=== PATIENT | male | born 1960 | race Caucasian/White ===

== ENCOUNTER → 2018-01-20 | Outpatient (CLI) | payer BC, MEDICARE ==
--- NOTE | 2018-01-20 10:35 | P.STRESS ---
- Stress Test Note Stress Test Results/Findings: Exam Performed: stress test Exam Date: 01/20/18 Reason for Exam: CHEST PAIN Height: 5 ft 9 in Weight: 92.986 kg Protocol: GORDON Stage: V Duration of Exercise: 12:34 Resting Heart Rate: 69 Resting Blood Pressure: 158/102 Maximum Achieved Heart Rate: 147 Maximum Achieved Blood Pressure: 212/89 85% PMHR: 140 100% PMHR: 165 METS: 12.9 Technologist Comment: Stress Test Results/Findings: This is a 57-year-old gentleman being evaluated for symptoms of chest pain and shortness of breath. Patient has history of hypercholesteremia and family history of ischemic heart disease. Stress data: Baseline EKG showed sinus rhythm with normal [place] interval and QRS duration. Blood pressure at rest is 158 102 with a pulse rate of 69. Patient walked on the Gordon protocol for 12 minutes and 34 seconds achieving a maximal heart rate of 147 with a blood pressure of 212/89. EKGs taken during and after exercise did not reveal any significant changes from the baseline. Patient did not experience any chest pain. Had chronic back pain. Final impression: #1. Negative regular stress test #2. Excellent exercise capacity #3. Patient did not express any chest pain #4. No arrhythmias are noted.
--- NOTE | 2018-01-21 10:55 | EST ---
Stress Test Results/Findings: Exam Performed: stress test Exam Date: 01/20/18 Reason for Exam: CHEST PAIN Height: 5 ft 9 in Weight: 92.986 kg Protocol: GORDON Stage: V Duration of Exercise: 12:34 Resting Heart Rate: 69 Resting Blood Pressure: 158/102 Maximum Achieved Heart Rate: 147 Maximum Achieved Blood Pressure: 212/89 85% PMHR: 140 100% PMHR: 165 METS: 12.9 Technologist Comment: Stress Test Results/Findings: This is a 57-year-old gentleman being evaluated for symptoms of chest pain and shortness of breath. Patient has history of hypercholesteremia and family history of ischemic heart disease. Stress data: Baseline EKG showed sinus rhythm with normal HI interval and QRS duration. Blood pressure at rest is 158 102 with a pulse rate of 69. Patient walked on the Gordon protocol for 12 minutes and 34 seconds achieving a maximal heart rate of 147 with a blood pressure of 212/89. EKGs taken during and after exercise did not reveal any significant changes from the baseline. Patient did not experience any chest pain. Had chronic back pain. Final impression: #1. Negative regular stress test #2. Excellent exercise capacity #3. Patient did not express any chest pain #4. No arrhythmias are noted. MTDD
== END ==
LOC: RADNMMAIN 08:43
PROVIDERS: ATTEND Family Medicine
DX: R07.89 Other chest pain (principal)
CPT/HCPCS: 93017

== ENCOUNTER → 2020-01-26 | Outpatient (CLI) | payer BC, MEDICARE ==
--- NOTE | 2020-01-26 22:00 | XR ---
EXAMINATION TYPE: XR knee complete RT DATE OF EXAM: 01/26/2020 COMPARISON: HISTORY: Pain TECHNIQUE: Three-view right knee FINDINGS: No significant joint effusion is evident. Patellofemoral joint space appears preserved. Sma ll posterior patellar spurs may be present. Medial lateral compartment joint spaces are preserved. No acute fractures or dislocations are evident. Follow-up exams can be performed 7-10 days from acute trauma for continued pain. MRI could be perform ed if evaluation of soft tissues is required. IMPRESSION: 1. Normal three-view right knee.
== END | disposition home or self-care (01) ==
LOC: RADXRYALE 16:17
PROVIDERS: ATTEND Physician Assistant Medical
DX: M25.561 Pain in right knee (principal)

== ENCOUNTER → 2020-05-03 | Outpatient (CLI) | payer BC, MEDICARE ==
--- NOTE | 2020-05-03 12:41 | CT ---
EXAMINATION TYPE: CT sinus wo con DATE OF EXAM: 05/03/2020 COMPARISON: None HISTORY: Chronic sinusitis CT DLP: 583 mGycm CONTRAST: 0 mL of Isovue 300 The paranasal sinuses are examined in the axial plane at 2 mm thick sections. Reconstructed images i n the coronal plane were obtained. Maxillary spine is intact. The maxillary sinuses are clear. The ethmoid air cells are clear. The sphenoid sinuses are clear. The frontal sinuses are clear. The septum is evaluated. There is septal deviation to the left. The ostiomeatal units are patent. IMPRESSIONS: 1. Normal CT sinus study. 2. Left septal deviation.
== END | disposition home or self-care (01) ==
LOC: RADCTMAIN 09:15
PROVIDERS: ATTEND Otolaryngology
DX: J34.2 Deviated nasal septum (principal); J32.9 Chronic sinusitis, unspecified; Z91.013 Allergy to seafood
CPT/HCPCS: 70486

== ENCOUNTER 2022-03-21 21:06 | Emergency (ER) | payer BC, MEDICARE ==
[2022-03-21 21:21] VITALS: BP 183/100; PULSE 81; RESP 20; TEMP 98.2
== END 2022-03-21 23:29 | disposition left against medical advice (07) ==
LOC: EC 21:06
DX: Z53.21 Procedure and treatment not carried out due to patient leaving prior to being seen by health care provider (principal)
CPT/HCPCS: 93005; 99499

== ENCOUNTER → 2023-03-12 | Outpatient (CLI) | payer MEDICARE ==
[2023-03-12 15:10] VITALS: BP 162/75; PULSE 73; TEMP 98.5; BMI 29.7
--- NOTE | 2023-03-12 15:19 | P.BASOAP ---
Subjective Progress Note Date: 03/12/23 Principal diagnosis: Morbid obesity Patient here today for a lap band adjustment. He underwent lap band placement in 2010. Initial weight 260. Today's weight 200. States he would like to lose a bit more. He does have restriction. He can tolerate bread and meat at times however. He is unsure how much fluid is in his band. Objective - Vital Signs Vital signs: Vital Signs Temp 98.5 F 03/12/23 15:06 Pulse 73 03/12/23 15:06 Resp BP 162/75 03/12/23 15:06 Pulse Ox FiO2 Intake & Output 03/11/23 03/12/23 03/12/23 18:59 06:59 18:59 Weight 91.172 kg - Exam Abdomen: Soft, nontender, nondistended Assessment/Plan (1) Morbid obesity Narrative/Plan: 62-year-old male with morbid obesity. Patient interested in lap band adjustment. Will add fluid. The patient's lap band port was palpated. The site was aseptically prepped. The Payton needle was advanced into the port. The patient's band was accessed. First I withdrew fluid. The patient had over 7 mL in the band. I only had a 6 mL syringe so he may have had more than that. I added 0.5 mL of fluid today. Pressure was held and a sterile dressing was applied. Plan: Date: 03/12/23 Initial Weight: Initial BMI: Current Weight: 91.172 kg Current BMI: 29.7 Type of Surgery: Total Volume in Band: Previous Volume: Volume Removed: Volume Added: Band Size:
== END ==
LOC: BARWHC3 14:43
PROVIDERS: ATTEND Surgery
DX: E66.01 Morbid (severe) obesity due to excess calories (principal); Z46.51 Encounter for fitting and adjustment of gastric lap band; Z91.013 Allergy to seafood
CPT/HCPCS: 99212

== ENCOUNTER 2023-04-01 07:32 | Emergency (ER) | payer MEDICARE ==
[2023-04-01 07:39] VITALS: RESP 18
--- NOTE | 2023-04-01 07:57 | ED ---
General Adult HPI - General Chief complaint: Urogenital Stated complaint: blood in urine Time Seen by Provider: 04/01/23 07:50 Source: patient, RN notes reviewed, old records reviewed Mode of arrival: ambulatory Limitations: no limitations - History of Present Illness Initial comments: This is a 62-year-old male who presents to the emergency department complaining that he woke up this morning was urinating blood. Patient states she's had no dysuria. Patient states he is not on any blood thinners. Patient denies any history of similar. Patient denies any abdominal pain or back pain. Patient denies any fever chills. - Related Data Home Medications Medication Instructions Recorded Confirmed Amphetamine [Dyanavel Xr] 20 mg PO BID 03/12/23 03/12/23 Gabapentin 600 mg PO BID 03/12/23 03/12/23 oxyCODONE HCL/ACETAMINOPHEN 1 tab PO BID 03/12/23 03/12/23 [oxyCODONE HCL/ACETAMINOPHEN 10-300] Allergies Allergy/AdvReac Type Severity Reaction Status Date / Time shellfish derived [Shellfish] AdvReac Anaphylaxis Verified 04/01/23 07:39 Review of Systems ROS Statement: Those systems with pertinent positive or pertinent negative responses have been documented in the HPI. ROS Other: All systems not noted in ROS Statement are negative. Past Medical History Past Medical History: GERD/Reflux, Hypertension Additional Past Medical History / Comment(s): chronic back pain History of Any Multi-Drug Resistant Organisms: None Reported Past Surgical History: Bariatric Surgery, Orthopedic Surgery Additional Past Surgical History / Comment(s): lap band Past Anesthesia/Blood Transfusion Reactions: No Reported Reaction Past Psychological History: No Psychological Hx Reported Smoking Status: Never smoker Past Alcohol Use History: None Reported Past Drug Use History: None Reported General Exam - General Exam Comments Initial Comments: GENERAL: Patient is well-developed and well-nourished. Patient is nontoxic and well- hydrated and is in no acute distress. ENT: Neck is soft and supple. No significant lymphadenopathy is noted. Oropharynx is clear. Moist mucous membranes. Neck has full range of motion without eliciting any pain. EYES: The sclera were anicteric and conjunctiva were pink and moist. Extraocular movements were intact and pupils were equal round and reactive to light. Eyelids were unremarkable. PULMONARY: Unlabored respirations. Good breath sounds bilaterally. No audible rales rhonchi or wheezing was noted. CARDIOVASCULAR: There is a regular rate and rhythm without any murmurs gallops or rubs. ABDOMEN: Soft and nontender with normal bowel sounds. SKIN: Skin is clear with no lesions or rashes and otherwise unremarkable. NEUROLOGIC: Patient is alert and oriented x3. Cranial nerves II through XII are grossly intact. Motor and sensory are also intact. Normal speech, volume and content. Symmetrical smile. MUSCULOSKELETAL: Normal extremities with adequate strength and full range of motion. No lower extremity swelling or edema. No calf tenderness. Negative CVA tenderness LYMPHATICS: No significant lymphadenopathy is noted PSYCHIATRIC: Normal psychiatric evaluation. Limitations: no limitations Course Vital Signs 04/01/23 07:36 Temperature 98 F Pulse Rate 92 Respiratory 18 Rate Blood Pressure 155/83 O2 Sat by Pulse 98 Oximetry Medical Decision Making - Medical Decision Making Was pt. sent in by a medical professional or institution (, PA, CHANGE DIRECTOR, urgent care, hospital, or half-way...) When possible be specific @ -No Did you speak to anyone other than the patient for history (EMS, parent, family, police, friend...)? What history was obtained from this source @ -No Did you review nursing and triage notes (agree or disagree)? Why? @ -I reviewed and agree with nursing and triage notes Were old charts reviewed (outside hosp., previous admission, EMS record, old EKG, old radiological studies, urgent care reports/EKG's, half-way records)? Report findings @ -No old charts were reviewed Differential Diagnosis (chest pain, altered mental status, abdominal pain women, abdominal pain men, vaginal bleeding, weakness, fever, dyspnea, syncope, headache, dizziness, GI bleed, back pain, seizure, CVA, palpatations, mental health, musculoskeletal)? @ -Differential Abdominal Pain Men: Appendicitis, cholecystitis, diverticulosis, bladder tumor, kidney tumor, is chemic bowel, pancreatitis, hepatitis, UTI, gastroenteritis, AAA, incarcerated hernia, bowel obstruction, constipation, inflammatory bowel, hepatitis, peptic ulcer disease, splenic infarction, perforated viscus, testicular torsion, this is not meant to be an all-inclusive list EKG interpreted by me (3pts min.). @ -As above X-rays interpreted by me (1pt min.). @ -None done CT interpreted by me (1pt min.). @ -None done U/S interpreted by me (1pt. min.). @ -Ultrasound showed a potential mass in the bladder What testing was considered but not performed or refused? (CT, X-rays, U/S, labs)? Why? @ -None What meds were considered but not given or refused? Why? @ -None Did you discuss the management of the patient with other professionals (professionals i.e. Dr., PA, CHANGE DIRECTOR, lab, RT, psych nurse, social media analyst, conveyor line battery charger, teacher, u.s. revenue officer, outsole caser)? Give summary @ -No Was smoking cessation discussed for >3mins.? @ -No Was critical care preformed (if so, how long)? @ -No Were there social determinants of health that impacted care today? How? (Homelessness, low income, unemployed, alcoholism, drug addiction, transportation, low edu. Level, literacy, decrease access to med. care, correction, rehab)? @ -No Was there de-escalation of care discussed even if they declined (Discuss DNR or withdrawal of care, Hospice)? DNR status @ -No What co-morbidities impacted this encounter? (DM, HTN, Smoking, COPD, CAD, Cancer, CVA, ARF, Chemo, Hep., AIDS, mental health diagnosis, sleep apnea, morbid obesity)? @ -None Was patient admitted / discharged? Hospital course, mention meds given and route, prescriptions, significant lab abnormalities, going to OR and other pertinent info. @ -Patient's ultrasound showed potential mass in the bladder. Patient follow- up with urology. Undiagnosed new problem with uncertain prognosis? @ -No Drug Therapy requiring intensive monitoring for toxicity (Heparin, Nitro, Insulin, Cardizem)? @ -No Were any procedures done? @ -No Diagnosis/symptom? @ -Hematuria Acute, or Chronic, or Acute on Chronic? @ -Acute Uncomplicated (without systemic symptoms) or Complicated (systemic symptoms)? @ -Complicated Side effects of treatment? @ -No Exacerbation, Progression, or Severe Exacerbation? @ -No Poses a threat to life or bodily function? How? (Chest pain, [place], [place], pneumonia, PE, COPD, DKA, ARF, appy, cholecystitis, CVA, Diverticulitis, Homicidal, Mukherjee icidal, threat to staff... and all critical care pts) @ -No Diagnosis/symptom? @ -Bladder mass Acute, or Chronic, or Acute on Chronic? @ -Acute Uncomplicated (without systemic symptoms) or Complicated (systemic symptoms)? @ -Complicated Side effects of treatment? @ -none Exacerbation, Progression, or Severe Exacerbation] @ -no Poses a threat to life or bodily function? @ -no - Lab Data Result diagrams: 04/01/23 07:56 04/01/23 07:56 Lab Results 04/01/23 04/01/23 04/01/23 Range/Units 07:56 07:56 07:56 WBC 4.3 (3.8-10.6) k/uL RBC 4.85 (4.30-5.90) m/uL Hgb 15.6 (13.0-17.5) gm/dL Hct 46.6 (39.0-53.0) % MCV 96.0 (80.0-100.0) fL MCH 32.1 (25.0-35.0) pg MCHC 33.4 (31.0-37.0) g/dL RDW 12.3 (11.5-15.5) % Plt Count 233 (150-450) k/uL MPV 6.8 Neutrophils % 58 % Lymphocytes % 31 % Monocytes % 7 % Eosinophils % 2 % Basophils % 1 % Neutrophils # 2.5 (1.3-7.7) k/uL Lymphocytes # 1.3 (1.0-4.8) k/uL Monocytes # 0.3 (0-1.0) k/uL Eosinophils # 0.1 (0-0.7) k/uL Basophils # 0.0 (0-0.2) k/uL Sodium 141 (137-145) mmol/L Potassium 3.5 (3.5-5.1) mmol/L Chloride 102 (98-107) mmol/L Carbon Dioxide 29 (22-30) mmol/L Anion Gap 10 mmol/L BUN 17 (9-20) mg/dL Creatinine 1.06 (0.66-1.25) mg/dL Est GFR (CKD-EPI)AfAm 88 (>60 ml/min/1.73 sqM) Est GFR (CKD-EPI)NonAf 77 (>60 ml/min/1.73 sqM) Glucose 93 (74-99) mg/dL Calcium 9.8 (8.4-10.2) mg/dL Total Bilirubin 1.0 (0.2-1.3) mg/dL AST 29 (17-59) U/L ALT 25 (4-49) U/L Alkaline Phosphatase 70 (38-126) U/L Total Protein 7.0 (6.3-8.2) g/dL Albumin 4.3 (3.5-5.0) g/dL Urine Color Dark Red Urine Appearance Turbid (Clear) Urine RBC >182 H (0-5) /hpf Urine WBC 11 H (0-5) /hpf Urine Mucus Many H (None) /hpf Disposition Clinical Impression: Bladder mass, Hematuria Disposition: HOME SELF-CARE Condition: Good Instructions (If sedation given, give patient instructions): Hematuria (ED) Is patient prescribed a controlled substance at d/c from ED?: No Referrals: Pratik Conti DO [Primary Care Provider] - 1-2 days Tyler Romero MD [STAFF PHYSICIAN] - 1-2 days Time of Disposition: 08:57
[2023-04-01 08:21] LABS: Basophils % (A) 1 %; Eosinophils # (A) 0.1 k/uL (0-0.7); Eosinophils % (A) 2 %; HCT 46.6 % (39.0-53.0); HGB 15.6 gm/dL (13.0-17.5); Lymphocytes # (A) 1.3 k/uL (1.0-4.8); Lymphocytes % (A) 31 %; MCH 32.1 pg (25.0-35.0); MCHC 33.4 g/dL (31.0-37.0); Mean Platelet Volume 6.8; Monocytes # (A) 0.3 k/uL (0-1.0); Monocytes % (A) 7 %; Neutrophils # (A) 2.5 k/uL (1.3-7.7); Neutrophils % (A) 58 %; Platelet Count 233 k/uL (150-450); RBC 4.85 m/uL (4.30-5.90); RDW 12.3 % (11.5-15.5); WBC 4.3 k/uL (3.8-10.6)
--- NOTE | 2023-04-01 08:32 | US ---
EXAMINATION TYPE: US renals and bladder DATE OF EXAM: 04/01/2023 COMPARISON: NONE CLINICAL INDICATION: Male, 62 years old with history of Hematuria; Pt states painless gross hematuria that started yesterday EXAM MEASUREMENTS: Right Kidney: 11.0 x 4.9 x 4.7 cm Left Kidney: 12.1 x 5.1 x 5.4 cm Right Kidney: Normal cortical thickness. No evidence of shadowing calculi or hydronephrosis. Simple c ystic lesion upper pole= 1.7 x 1.3 x 1.4 cm Left Kidney: Normal cortical thickness. No evidence of shadowing calculi or hydronephrosis. A few sim ple cystic lesions are suggested, the largest in the upper pole= 3.5 x 2.8 x 2.7 cm Bladder: Bladder not fully distended as the patient voided just prior to exam. There appears to be an irregular solid appearing lesion with minimal internal Doppler flow suggested along the left bladder wall extending into the lumen = 1.2 x 1.3 x 1.3 cm Bilateral Jets seen: No IMPRESSION: 1. Bilateral renal simple cysts. 2. No evidence of shadowing calculi or hydronephrosis. 3. Irregular 1.3 cm filling defect suggested within the bladder on the left, concerning for possible neoplasm.
[2023-04-01 08:33] LABS: Appearance,Urine Turbid (Clear); Color,Urine Dark Red; Mucus,Urine Many /hpf; RBC,Urine >182 /hpf (0-5); WBC,Urine 11 /hpf (0-5)
[2023-04-01 08:38] LABS: ALT 25 U/L (4-49); AST 29 U/L (17-59); African American GFR (CKD) 88 (>60 ml/min/1.73 sqM); Albumin 4.3 g/dL (3.5-5.0); Alkaline Phosphatase 70 U/L (38-126); Anion Gap 10 mmol/L; Blood Urea Nitrogen 17 mg/dL (9-20); Calcium 9.8 mg/dL (8.4-10.2); Carbon Dioxide 29 mmol/L (22-30); Chloride 102 mmol/L (98-107); Glucose 93 mg/dL (74-99); Non-African American GFR(CKD) 77 (>60 ml/min/1.73 sqM); Potassium 3.5 mmol/L (3.5-5.1); Sodium 141 mmol/L (137-145)
[2023-04-01 09:18] VITALS: BP 146/82; PULSE 86; TEMP 97.6
== END 2023-04-01 09:02 | disposition home or self-care (01) ==
LOC: EC 07:32
DX: R31.9 Hematuria, unspecified (principal); N32.89 Other specified disorders of bladder; I10 Essential (primary) hypertension; Z91.013 Allergy to seafood
CPT/HCPCS: 36415; 76770; 80053; 81001; 85025; 99284

== ENCOUNTER 2023-04-17 00:32 | Emergency (ER) | payer MEDICARE ==
--- NOTE | 2023-04-17 01:04 | ED ---
General Adult HPI - General Chief complaint: Urogenital Stated complaint: po complication Time Seen by Provider: 04/17/23 00:38 Source: patient, EMS, RN notes reviewed, old records reviewed Mode of arrival: EMS - History of Present Illness Initial comments: 62-year-old male with urinary retention after having bladder mass surgery today. Youssef catheter was left in place. The patient had changed his leg bag and after this point did not have any urine output. Upon arrival nursing staff was able to adjust tubing properly and the patient had normal urine flow. No other complaints. - Related Data Home Medications Medication Instructions Recorded Confirmed Amphetamine [Dyanavel Xr] 20 mg PO BID 03/12/23 03/12/23 Gabapentin 600 mg PO BID 03/12/23 03/12/23 oxyCODONE HCL/ACETAMINOPHEN 1 tab PO BID 03/12/23 03/12/23 [oxyCODONE HCL/ACETAMINOPHEN 10-300] Allergies Allergy/AdvReac Type Severity Reaction Status Date / Time shellfish derived [Shellfish] AdvReac Anaphylaxis Verified 04/17/23 00:45 Review of Systems ROS Statement: Those systems with pertinent positive or pertinent negative responses have been documented in the HPI. ROS Other: All systems not noted in ROS Statement are negative. Past Medical History Past Medical History: GERD/Reflux, Hypertension Additional Past Medical History / Comment(s): chronic back pain History of Any Multi-Drug Resistant Organisms: None Reported Past Surgical History: Bariatric Surgery, Bladder Surgery, Orthopedic Surgery Additional Past Surgical History / Comment(s): lap band, bladder surgery 04/16/2023 Past Anesthesia/Blood Transfusion Reactions: No Reported Reaction Past Psychological History: No Psychological Hx Reported Smoking Status: Never smoker Past Alcohol Use History: None Reported Past Drug Use History: None Reported General Exam General appearance: alert, in no apparent distress Head exam: Present: atraumatic, normocephalic Eye exam: Present: normal appearance, PERRL ENT exam: Present: normal exam Neck exam: Present: normal inspection. Absent: tenderness, meningismus Respiratory exam: Present: normal lung sounds bilaterally. Absent: respiratory distress, wheezes Cardiovascular Exam: Present: regular rate, normal rhythm GI/Abdominal exam: Present: soft Course Vital Signs 04/17/23 00:41 Temperature 97.6 F Pulse Rate 61 Respiratory 19 Rate Blood Pressure 137/81 O2 Sat by Pulse 95 Oximetry Medical Decision Making - Medical Decision Making Was pt. sent in by a medical professional or institution (KAY Johnson, SOFT WATER MECHANIC, urgent care, hospital, or usp...) When possible be specific @ -No Did you speak to anyone other than the patient for history (EMS, parent, family, police, friend...)? What history was obtained from this source @ -No Did you review nursing and triage notes (agree or disagree)? Why? @ -I reviewed and agree with nursing and triage notes Were old charts reviewed (outside hosp., previous admission, EMS record, old EKG, old radiological studies, urgent care reports/EKG's, usp records)? Report findings @ -No old charts were reviewed Differential Diagnosis (chest pain, altered mental status, abdominal pain women, abdominal pain men, vaginal bleeding, weakness, fever, dyspnea, syncope, headache, dizziness, GI bleed, back pain, seizure, CVA, palpatations, mental health, musculoskeletal)? @ Occluded Youssef catheter, hematuria, UTI EKG interpreted by me (3pts min.). @ -As above X-rays interpreted by me (1pt min.). @ -None done CT interpreted by me (1pt min.). @ -None done U/S interpreted by me (1pt. min.). @ -None done What testing was considered but not performed or refused? (CT, X-rays, U/S, labs)? Why? @ -None What meds were considered but not given or refused? Why? @ -None Did you discuss the management of the patient with other professionals (professionals i.e. KAY Johnson, SOFT WATER MECHANIC, lab, RT, psych nurse, social contact worker, air vice marshal, teacher, bank operations officer, case mgr)? Give summary @ -No Was smoking cessation discussed for >3mins.? @ -No Was critical care preformed (if so, how long)? @ -No Were there social determinants of health that impacted care today? How? (Homelessness, low income, unemployed, alcoholism, drug addiction, transportation, low edu. Level, literacy, decrease access to med. care, prison, rehab)? @ -No Was there de-escalation of care discussed even if they declined (Discuss DNR or withdrawal of care, Hospice)? DNR status @ -No What co-morbidities impacted this encounter? (DM, HTN, Smoking, COPD, CAD, Cancer, CVA, ARF, Chemo, Hep., AIDS, mental health diagnosis, sleep apnea, morbid obesity)? @ -None Was patient admitted / discharged? Hospital course, mention meds given and route, prescriptions, significant lab abnormalities, going to OR and other pertinent info. @ -[Catheter tubing repositioned in appropriate location and urine flowing freely. Stable for discharge. Undiagnosed new problem with uncertain prognosis? @ -No Drug Therapy requiring intensive monitoring for toxicity (Heparin, Nitro, Insulin, Cardizem)? @ -No Were any procedures done? @ -No Diagnosis/symptom? @ -Urinary retention secondary to inappropriately connected Youssef catheter Acute, or Chronic, or Acute on Chronic? @ Acute Uncomplicated (without systemic symptoms) or Complicated (systemic symptoms)? @ -default Side effects of treatment? @ -No Exacerbation, Progression, or Severe Exacerbation? @ -No Poses a threat to life or bodily function? How? (Chest pain, [place], [place], pneumonia, PE, COPD, DKA, ARF, appy, cholecystitis, CVA, Diverticulitis, Homicidal, Suicidal, threat to staff... and all critical care pts) @ -No Disposition Clinical Impression: Retention of urine due to occlusion of Youssef catheter Disposition: HOME SELF-CARE Condition: Fair Instructions (If sedation given, give patient instructions): Youssef Catheter Placement and Care (ED) Is patient prescribed a controlled substance at d/c from ED?: No Referrals: Pratik Conti DO [Primary Care Provider] - 1-2 days Ken Sykes MD [STAFF PHYSICIAN] - 1-2 days Time of Disposition: 01:04
[2023-04-17 01:26] VITALS: BP 137/81; PULSE 61; RESP 19; TEMP 97.6
== END 2023-04-17 01:25 | disposition home or self-care (01) ==
LOC: EC 00:32
DX: T83.098A Other mechanical complication of other urinary catheter, initial encounter (principal); I10 Essential (primary) hypertension; Z91.013 Allergy to seafood
CPT/HCPCS: 99284

== ENCOUNTER → 2023-07-24 | Outpatient (CLI) | payer MEDICARE ==
--- NOTE | 2023-07-24 16:20 | XR ---
EXAMINATION TYPE: XR shoulder complete LT DATE OF EXAM: 07/24/2023 COMPARISON: NONE HISTORY: Pain TECHNIQUE: Shoulder examined in 3 projections. FINDINGS: The humeral head articulates with the glenoid. The acromio-clavicular junction is normal. No acute fractures or dislocations are evident. A follow up study can be performed 7-10 days from acute trauma for continued pain. MRI can be perfor med if soft tissue evaluation would be of benefit. IMPRESSION: 1. No acute osseous shoulder abnormality.
== END | disposition home or self-care (01) ==
LOC: RADXRYALE 14:30
PROVIDERS: ATTEND Physician Assistant
DX: M25.512 Pain in left shoulder (principal); G89.29 Other chronic pain